=== PATIENT | male | born 1940 | race Caucasian/White ===

== ENCOUNTER → 2016-12-28 | Outpatient (CLI) | payer OTHER ==
[~2016-12-28] MED LIST: ACID CONTROL20 MG PO; AMBIEN10 MG PO; ASCORBIC ACID500 M3 PO; ASCORBIC ACID500 MG PO; BACTRIM,SEPT1 TABLET PO; BENADRYL25 MG PO; C COMPLEX500 MG PO; CARDIZEM CD,CA180 MG PO; CASODEX50 MG PO; CIPRO500 MG PO; CIPROFLOXACIN500 M1 PO; CLEOCIN150 MG PO; DAILY VALUE1 EACH PO; DIGOXIN250 MCG PO; DOCUSATE SODIU100 MG PO; DOK PLUS TABLE1 EACH PO; DULCOLAX10 MG PR; DULCOLAX5 MG PO; FAMOTIDINE20 MG PO; FINASTERIDE5 MG PO; FLOMAX0.4 MG PO; FOLIC ACID1 MG PO; HYDROCODON-ACE1 EAC7 PO; LANOXIN250 MCG PO; LIDOCAINE700 MG TD; LIDODERM 5% P1 PATCH TD; LISINOPRIL10 MG PO; METOPROLOL SUCC50 MG PO; MILK OF MAGNESI10 ML PO; OXYCODONE HCL5 MG PO; PEPCID20 MG PO; POLYETHYLENE GL17 GM PO; REGLAN10 MG PO; TAMSULOSIN HCL0.4 MG PO; THERAGRAN1 TABLET PO; TYLENOL REGULA325 MG PO; TYLENOL WITH C1 EACH PO; VITAMIN D400 UNIT PO; XARELTO10 MG PO; XARELTO15 MG PO; ZOFRAN4 MG PO; ZOLPIDEM TARTRA10 MG PO
== END | disposition home or self-care (01) ==
LOC: NUC 10:33
DX: Z90.5 Acquired absence of kidney (principal); Z96.643 Presence of artificial hip joint, bilateral; R97.20 Elevated prostate specific antigen [PSA]
CPT/HCPCS: 78306; A9503